=== PATIENT | female | born 1990 | race Caucasian/White ===

== ENCOUNTER 2016-06-14 19:27 | Emergency (ER) | payer OTHER ==
[~2016-06-14] VITALS: Ht 162.6 cm; Wt 84.0 kg
[~2016-06-14 19:27] MED LIST: PROM25SU8 PO
[2016-06-14 19:40] VITALS: BP 104/67; PULSE 80; RESP 17; TEMP 98.3; O2SAT 98
[2016-06-14] MEDS ORDERED: PROCHLORPERAZINE INJ 10 MG/2 ML VIAL IVP ONE (22:00)
[2016-06-14] MEDS ORDERED: diphenhydrAMINE HCL 50 MG/ML VIAL IVP ONE (22:00)
[2016-06-14] MEDS ORDERED: SODIUM CHLORIDE 0.9% FLUSH 5 ML FLUSH IVF PRN (22:00)
[2016-06-14 22:03] VITALS: BP 110/68; PULSE 78; RESP 18; TEMP 98.3; O2SAT 98
[2016-06-14] MEDS ORDERED: BUTA1CAP PO (22:05)
--- NOTE | 2016-06-14 22:05 | PD ---
HPI . Headache Chief Complaint: Headache Time Seen by Provider: 21:58 Travel History International Travel<30 days: No Contact w/Intl Traveler<30days: No Traveled to known affect area: No History of Present Illness HPI Patient presents with a three-day history of headache. It is associated with nausea and dizziness. She denies fever. She denies any upper respiratory symptoms PFSH Past Medical History Asthma: Yes Diminished Hearing: No ?: Not LMP: 1 WEEK : 2 Para: 0 Miscarriage: 1 : 1 Social History Alcohol Use: No Tobacco Use: No Substance Use: No Allergies-Medications (Allergen,Severity, Reaction): Coded Allergies: No Known Allergies (Unverified , 06/14/16) Reported Meds & Prescriptions Reported Meds & Active Scripts Active Fioricet (Uisurqvkgq-Wmhqzexjowcaj-Vcpppdtt) 50-300-40 Mg Cap 1-2 Cap PO Q6H PRN Review of Systems Except as stated in HPI: all other systems reviewed are Neg General / Constitutional: No: Fever, Chills Eyes: No: Blurred Vision HENT: Positive: Headaches Gastrointestinal: Positive: Nausea, No: Vomiting, Diarrhea Neurologic: Positive: Dizziness, No: Focal Abnormalities Physical Exam Narrative GENERAL: SKIN: Warm and dry. HEAD: Atraumatic. Normocephalic. EYES: Pupils equal and round. ENT: No nasal bleeding or discharge. Mucous membranes pink and moist. NECK: Trachea midline. CARDIOVASCULAR: Regular rate and rhythm. RESPIRATORY: No accessory muscle use. MUSCULOSKELETAL: No obvious deformities. No edema. NEUROLOGICAL: Awake and alert. No obvious cranial nerve deficits. Motor grossly within normal limits. Normal speech. PSYCHIATRIC: Appropriate mood and affect; insight and judgment normal. Data Data Last Documented VS Vital Signs Date Time Temp Pulse Resp B/P Pulse Ox O2 Delivery O2 Flow Rate FiO2 06/14/16 22:03 76 18 98 Room Air 06/14/16 22:03 98.3 110/68 Orders Iv Access Insert/Monitor (06/14/16 22:00) Sodium Chloride 0.9% Flush (Ns Flush) (06/14/16 22:00) Prochlorperazine Inj (Compazine Inj) (06/14/16 22:00) Diphenhydramine Inj (Benadryl Inj) (06/14/16 22:00) MDM Medical Decision Making Medical Screen Exam Complete: Yes Emergency Medical Condition: Yes Differential Diagnosis Differential diagnosis of headache includes but is not limited to migraine, muscle contraction headache, brain tumor, brain bleed Narrative Course Patient presents for evaluation and treatment of headache. She is well appearing. Headache is resolved. Diagnosis Primary Impression: Headache Qualified Code: G44.209 - Acute non intractable tension-type headache Med/Other Pt SpecificInfo: Prescription(s) given Scripts Bwrhkqaumk-Agtidmqivqxtk-Gedalpra (Fioricet)50-300-40 Mg Cap1-2 Cap PO Q6H PRN ( HEADACHE) #10 CAP Ref 0 Prov:Nay Song MD 06/14/16 Disposition: 01 DISCHARGE HOME Condition: Stable Nay Song MD Jun 14, 2016 22:05
[2016-06-14 23:17] VITALS: BP 108/66; PULSE 76; RESP 18; O2SAT 98
== END 2016-06-14 23:21 | disposition home or self-care (01) ==
LOC: PHED 19:27
DX: R51 Headache (principal)
CPT/HCPCS: 96374; 96375; 99283; J0780; J1200

== ENCOUNTER 2016-08-20 16:21 | Emergency (ER) | payer OTHER ==
[~2016-08-20] VITALS: Ht 162.6 cm; Wt 80.0 kg
[2016-08-20 16:21] VITALS: BP 133/75; PULSE 76; RESP 18; TEMP 98; O2SAT 99
[~2016-08-20 16:21] MED LIST changes: +BUTA1CAP PO; -PROM25SU8 PO
--- NOTE | 2016-08-20 21:16 | PD ---
HPI Chief Complaint: Fall Time Seen by Provider: 20:54 Travel History International Travel<30 days: No Contact w/Intl Traveler<30days: No Traveled to known affect area: No History of Present Illness HPI 26-year-old female arrives to the ER after she fell down her stairs at home about 7 hours prior to ER arrival. There was no loss of consciousness. She believes it was a mechanical fall. She fell down about 10 steps. She reports one episode of gagging. She denies actually vomiting. He complains of a mild frontal headache. She also complains of pain in the region of the coccyx. Pain 5/10 at rest and 7/10 with movement. The patient was ambulatory in the ER and has been since the fall. [facility] Past Medical History Medical History: Denies Significant Hx Asthma: Yes Diminished Hearing: No Immunizations Current: Yes Tetanus Vaccination: > 5 Years Influenza Vaccination: No ?: Not LMP: 07/22/2016 : 2 Para: 0 Miscarriage: 1 : 1 Past Surgical History Surgical History: No Previous Surgery Social History Alcohol Use: No Tobacco Use: No Substance Use: No Allergies-Medications (Allergen,Severity, Reaction): Coded Allergies: No Known Allergies (Unverified , 08/20/16) Reported Meds & Prescriptions Reported Meds & Active Scripts Active Ibuprofen 400 Mg Tab 400 Mg PO Q8H PRN Review of Systems Except as stated in HPI: all other systems reviewed are Neg Physical Exam Narrative GENERAL: Pleasant 26-year-old female no acute distress speaking full sentences SKIN: Warm and dry. HEAD: Atraumatic. Normocephalic. No parietal contusion or temporal contusion. EYES: Pupils equal and round. No scleral icterus. No injection or drainage. ENT: No nasal bleeding or discharge. Mucous membranes pink and moist. NECK: Trachea midline. No JVD. CARDIOVASCULAR: Regular rate and rhythm. RESPIRATORY: No accessory muscle use. Clear to auscultation. Breath sounds equal bilaterally. GASTROINTESTINAL: Abdomen soft, non-tender, nondistended. Hepatic and splenic margins not palpable. MUSCULOSKELETAL: Extremities without clubbing, cyanosis, or edema. No obvious deformities. NEUROLOGICAL: Awake and alert. No obvious cranial nerve deficits. Motor grossly within normal limits. Five out of 5 muscle strength in the arms and legs. Normal speech. PSYCHIATRIC: Appropriate mood and affect; insight and judgment normal. Data Data Last Documented VS Vital Signs Date Time Temp Pulse Resp B/P Pulse Ox O2 Delivery O2 Flow Rate FiO2 08/20/16 22:54 68 18 110/65 100 08/20/16 16:21 98.0 Room Air VS reviewed Orders Ct Brain W/O Iv Contrast(Rout) (08/20/16 21:05) Spine, Lumbar - Ltd (Ap & Lat) (08/20/16 ) Sacrum And Coccyx (08/20/16 ) Ed Urine Pregnancytest Poc (08/20/16 21:16) Acetaminophen (Tylenol) (08/20/16 21:30) MDM Medical Decision Making Medical Screen Exam Complete: Yes Emergency Medical Condition: Yes Medical Record Reviewed: Yes Differential Diagnosis ICH, coccyx fracture, contusions Narrative Course Urine negative Coccyx fracture noted. Donut pillow, pain management discussed with patient. Pt has been comfortable throughout ER stay. Pt reassured. Return precautions discussed. Last [address] 08/20/16 2105 Signed Impressions: Service Date/Time: Saturday, August 20, 2016 21:13 - CONCLUSION: No acute disease. Alexis Ball MD Sacrum and Coccyx X-Ray 08/20/16 0000 Signed Impressions: Service Date/Time: Saturday, August 20, 2016 21:35 - CONCLUSION: 1. Subtle cortical irregularity involving the coccyx suggestive of subtle acute fracture. Clinical correlation is recommended. Alexis Ball MD Lumbar Spine X-Ray 08/20/16 0000 Signed Impressions: Service Date/Time: Saturday, August 20, 2016 21:38 - CONCLUSION: No acute disease. Alexis Ball MD Diagnosis Primary Impression: Fall Qualified Code: W19.XXXA - Fall, initial encounter Additional Impressions: Head injury without concussion or intracranial hemorrhage Qualified Code: S09.90XA - Head injury without concussion or intracranial hemorrhage, initial encounter Fractured coccyx Qualified Code: S32.2XXA - Closed fracture of coccyx, initial encounter Referrals: Primary Care Physician 2 days Additional Instructions: You have a choice when it comes to health care, and we are glad that you chose [facility]. Hopefully, we have met your expectations on today's visit. You are welcome to return to [facility] at any time, as we are committed to meeting the health care needs of our community. Med/Other Pt SpecificInfo: Prescription(s) given Scripts Ibuprofen 400 Mg [id number] Mg PO Q8H PRN (PAIN SCALE 6 TO 10) #20 TAB Ref 0 Prov:Leonard Villaseñor MD 08/20/16 Disposition: 01 DISCHARGE HOME Condition: Stable Leonard Villaseñor MD Aug 20, 2016 21:16
--- NOTE | 2016-08-20 21:27 | RADRPT ---
EXAM DATE/TIME: 08/20/2016 21:13 [facility] COMPARISON: No previous studies available for comparison. INDICATIONS : Fall with head trauma. RADIATION DOSE: 56.35 CTDIvol (mGy) MEDICAL HISTORY : None SURGICAL HISTORY : None. ENCOUNTER: Initial ACUITY: 1 day PAIN SCALE: 5/10 LOCATION: cranial TECHNIQUE: Multiple contiguous axial images were obtained of the head. Using automated exposure control and adj ustment of the mA and/or kV according to patient size, radiation dose was kept as low as reasonably a chievable to obtain optimal diagnostic quality images. FINDINGS: CEREBRUM: The ventricles are normal for age. No evidence of midline shift, mass lesion, hemorrhage or acute in farction. No extra-axial fluid collections are seen. POSTERIOR FOSSA: The cerebellum and brainstem are intact. The 4th ventricle is midline. The cerebellopontine angle i s unremarkable. EXTRACRANIAL: The visualized portion of the orbits is intact. SKULL: The calvaria is intact. No evidence of skull fracture. CONCLUSION: No acute disease. Alexis Ball MD on August 20, 2016 at 21:25 Board Certified Radiologist. This report was verified electronically.
[2016-08-20] MEDS ORDERED: ACETAMINOPHEN 325 MG TAB PO ONE (21:30)
[2016-08-20] MEDS ORDERED: IBUP400T20 PO (22:05)
--- NOTE | 2016-08-20 22:06 | RADRPT ---
EXAM DATE/TIME: 08/20/2016 21:38 [facility] COMPARISON: No previous studies available for comparison. INDICATIONS : Lower back pain after fall on stairs. MEDICAL HISTORY : None. SURGICAL HISTORY : None. ENCOUNTER: Initial ACUITY: 1 day PAIN SCORE: 5/10 LOCATION: Bilateral lower back. FINDINGS: Two view examination was performed. There are five non-rib bearing vertebral bodies. The vertebral bodies are in normal alignment without evidence of subluxation or scoliosis. The disc spaces are den ntained. The pedicles are intact. Bony mineralization is normal. No fracture is identified. CONCLUSION: No acute disease. Alexis Ball MD on August 20, 2016 at 22:04 Board Certified Radiologist. This report was verified electronically.
--- NOTE | 2016-08-20 22:17 | RADRPT ---
EXAM DATE/TIME: 08/20/2016 21:35 [facility] COMPARISON: No previous studies available for comparison. INDICATIONS : Coccyx pain after fall on stairs. MEDICAL HISTORY : None. SURGICAL HISTORY : None. ENCOUNTER: Initial ACUITY: 1 day PAIN SCORE: 5/10 LOCATION: Coccyx. FINDINGS: There is slight cortical irregularity involving the coccyx raising the possibility of subtle acute fr acture. Clinical correlation is recommended. The sacrum is intact. CONCLUSION: 1. Subtle cortical irregularity involving the coccyx suggestive of subtle acute fracture. Clinical correlation is recommended. Alexis Ball MD on August 20, 2016 at 22:03 Board Certified Radiologist. This report was verified electronically.
[2016-08-20 22:54] VITALS: BP 110/65
== END 2016-08-20 22:58 | disposition home or self-care (01) ==
LOC: NEPC 16:21
DX: S09.90XA Unspecified injury of head, initial encounter (principal); S32.2XXA Fracture of coccyx, initial encounter for closed fracture; Z87.09 Personal history of other diseases of the respiratory system; W10.8XXA Fall (on) (from) other stairs and steps, initial encounter
CPT/HCPCS: 70450; 72100; 72220; 84703

== ENCOUNTER 2017-08-10 19:27 | Emergency (ER) | payer OTHER ==
[~2017-08-10 19:27] MED LIST changes: -BUTA1CAP PO; +IBUP1TAB5 PO
[2017-08-10 19:44] VITALS: BP 153/63; PULSE 115; RESP 18; TEMP 98.4; O2SAT 98
[2017-08-10 22:54] VITALS: BP 122/60; PULSE 110; RESP 16; O2SAT 97
[2017-08-10] MEDS ORDERED: BIRTH CONTROL PO (22:56)
[2017-08-10] MEDS ORDERED: SODIUM CHLOR 0.9% 1000 ML INJ 1,000 ML IV ONE ×2 (23:15→23:30)
[2017-08-10 23:21] LABS: AUTOMATED NEUTROPHIL # 10.1 TH/MM3 (1.8-7.7); BASOPHIL % 0.2 % (0.0-2.0); EOSINOPHIL # 0.1 TH/MM3 (0-0.4); EOSINOPHIL % 0.5 % (0.0-4.0); HEMATOCRIT 38.9 % (35.0-46.0); HEMOGLOBIN 13.5 GM/DL (11.6-15.3); LYMPH % 4.7 % (9.0-44.0); LYMPHOCYTE # 0.5 TH/MM3 (1.0-4.8); MEAN CELL VOLUME 83.4 FL (80.0-100.0); MEAN CORPUSCULAR HEMOGLOBIN 28.9 PG (27.0-34.0); MEAN CORPUSCULAR HGB CONC 34.7 % (32.0-36.0); MEAN PLATELET VOLUME 8.3 FL (7.0-11.0); MONOCYTE # 0.6 TH/MM3 (0-0.9); NEUT % 89.6 % (16.0-70.0); PLATELET COUNT 204 TH/MM3 (150-450); RED BLOOD COUNT 4.67 MIL/MM3 (4.00-5.30); RED CELL DISTRIBUTION WIDTH 12.2 % (11.6-17.2); WHITE BLOOD COUNT 11.3 TH/MM3 (4.0-11.0)
[2017-08-10] MEDS ORDERED: ONDANSETRON HCL 4 MG/2 ML VIAL IV ONE (23:30)
[2017-08-10 23:31] LABS: INTERNATIONAL NORMALIZED RATIO 1.1 RATIO; PROTHROMBIN TIME - PATIENT 10.8 SEC (9.8-11.6)
[2017-08-10 23:38] LABS: AST (GOT) 13 U/L (15-37); BICARBONATE 23.8 MEQ/L (21.0-32.0); BLOOD UREA NITROGEN 14 MG/DL (7-18); CALCIUM 8.5 MG/DL (8.5-10.1); CHLORIDE 104 MEQ/L (98-107); CREATININE 0.72 MG/DL (0.50-1.00); GLOMERULAR FILTRATION RATE 96 ML/MIN (>89); GLUCOSE,RANDOM 112 MG/DL (74-106); SODIUM (NA) 138 MEQ/L (136-145)
[2017-08-10 23:39] LABS: ALT (GPT) 20 U/L (10-53)
[2017-08-10 23:41] LABS: ALKALINE PHOSPHATASE 67 U/L (45-117); TOTAL BILIRUBIN ADULT 0.4 MG/DL (0.2-1.0); TOTAL PROTEIN 7.6 GM/DL (6.4-8.2)
[2017-08-10] MEDS ORDERED: ZOFR4TAB3 SL (23:42)
--- NOTE | 2017-08-10 23:50 | PD ---
HPI Chief Complaint: GI Complaint Time Seen by Provider: 22:50 Travel History International Travel<30 days: No Contact w/Intl Traveler<30days: No Traveled to known affect area: No History of Present Illness HPI Is a 27-year-old woman who presents to the emergency department complaining of nausea and vomiting that started this afternoon. She is nauseous all day. Vomiting started she was driving home from work this afternoon. She had been feeling generally well and healthy. She has had some chills but no definite fevers. No real abdominal pain. No diarrhea. Last bowel movement was normal. No history of abdominal surgeries. No urinary symptoms. No definite sick contacts. No recent travel, antibiotic exposure, or undercooked or unusual foods. History Past Medical History Medical History: Denies Significant Hx Tetanus Vaccination: Unknown Influenza Vaccination: No LMP: UNKNOWN : 2 Para: 0 Past Surgical History Surgical History: No Previous Surgery Social History Alcohol Use: No Tobacco Use: No Allergies-Medications (Allergen,Severity, Reaction): Coded Allergies: No Known Allergies (Unverified , 08/20/16) Reported Meds & Prescriptions Reported Meds & Active Scripts Active Zofran Odt (Ondansetron Odt) 4 Mg Tab 4 Mg SL Q8HR PRN Reported [ Control] 1 Tab PO DAILY Review of Systems Except as stated in HPI: all other systems reviewed are Neg Physical Exam Narrative GENERAL: Well-appearing 27-year-old woman, no acute distress. SKIN: Focused skin assessment warm/dry. HEAD: Atraumatic. Normocephalic. EYES: Pupils equal and round. No scleral icterus. No injection or drainage. ENT: No nasal bleeding or discharge. Mucous membranes pink and moist. NECK: Trachea midline. No JVD. CARDIOVASCULAR: Regular rate and rhythm. No murmur appreciated. RESPIRATORY: No accessory muscle use. Clear to auscultation. Breath sounds equal bilaterally. GASTROINTESTINAL: Abdomen soft, non-tender, nondistended. Hepatic and splenic margins not palpable. MUSCULOSKELETAL: No obvious deformities. No clubbing. No cyanosis. No edema. NEUROLOGICAL: Awake and alert. No obvious cranial nerve deficits. Motor grossly within normal limits. Normal speech. PSYCHIATRIC: Appropriate mood and affect; insight and judgment normal. Data Data Last Documented VS Vital Signs Date Time Temp Pulse Resp B/P (MAP) Pulse Ox O2 Delivery O2 Flow Rate FiO2 08/10/17 22:54 110 16 122/60 (80) 97 Room Air 08/10/17 19:44 98.4 Orders Orders Complete Blood Count With Diff (08/10/17 19:46) Comprehensive Metabolic Panel (08/10/17 19:46) Lipase (08/10/17 19:46) Prothrombin Time / Inr (Pt) (08/10/17:46) Act Partial Throm Time (Ptt) (08/10/17 19:46) Urinalysis - C+S If Indicated (08/10/17:46) Type And Screen (08/10/17:46) Sodium Chlor 0.9% 1000 Ml Inj (Ns 1000 M (08/10/17 23:15) Ondansetron Inj (Zofran Inj) (08/10/17 23:30) Sodium Chlor 0.9% 1000 Ml Inj (Ns 1000 M (08/10/17 23:30) Labs Laboratory Tests Test 08/10/17 23:00 08/10/17 23:40 White Blood Count 11.3 TH/MM3 Red Blood Count 4.67 MIL/MM3 Hemoglobin 13.5 GM/DL Hematocrit 38.9 % Mean Corpuscular Volume 83.4 FL Mean Corpuscular Hemoglobin 28.9 PG Mean Corpuscular Hemoglobin Concent 34.7 % Red Cell Distribution Width 12.2 % Platelet Count 204 TH/MM3 Mean Platelet Volume 8.3 FL Neutrophils (%) (Auto) 89.6 % Lymphocytes (%) (Auto) 4.7 % Monocytes (%) (Auto) 5.0 % Eosinophils (%) (Auto) 0.5 % Basophils (%) (Auto) 0.2 % Neutrophils # (Auto) 10.1 TH/MM3 Lymphocytes # (Auto) 0.5 TH/MM3 Monocytes # (Auto) 0.6 TH/MM3 Eosinophils # (Auto) 0.1 TH/MM3 Basophils # (Auto) 0.0 TH/MM3 CBC Comment DIFF FINAL Differential Comment Prothrombin Time 10.8 SEC Prothromb Time International Ratio 1.1 RATIO Activated Partial Thromboplast Time 25.9 SEC Blood Urea Nitrogen 14 MG/DL Creatinine 0.72 MG/DL Random Glucose 112 MG/DL Total Protein 7.6 GM/DL Albumin 4.0 GM/DL Calcium Level 8.5 MG/DL Alkaline Phosphatase 67 U/L Aspartate Amino Transf (AST/SGOT) 13 U/L Alanine Aminotransferase (ALT/SGPT) 20 U/L Total Bilirubin 0.4 MG/DL Sodium Level 138 MEQ/L Potassium Level 3.6 MEQ/L Chloride Level 104 MEQ/L Carbon Dioxide Level 23.8 MEQ/L Anion Gap 10 MEQ/L Estimat Glomerular Filtration Rate 96 ML/MIN Lipase 120 U/L Urine Color YELLOW Urine Turbidity CLEAR Urine pH 6.0 Urine Specific [place] 1.031 Urine Protein TRACE mg/dL Urine Glucose (UA) NEG mg/dL Urine Ketones 40 mg/dL Urine Occult Blood NEG Urine Nitrite NEG Urine Bilirubin NEG Urine Urobilinogen LESS THAN 2.0 MG/DL Urine Leukocyte Esterase NEG Urine RBC 2 /hpf Urine WBC 1 /hpf Urine Squamous Epithelial Cells 1 /hpf Urine Mucus FEW /lpf Microscopic Urinalysis Comment CULT NOT INDICATED MDM Medical Decision Making Medical Screen Exam Complete: Yes Emergency Medical Condition: Yes Interpretation(s) LABS: CBC is unremarkable. CMP is unremarkable. Lipase is normal. UA is unremarkable Differential Diagnosis Nausea vomiting, gastroenteritis, gastritis, UTI, appendicitis, foodborne illness, other Narrative Course Medical decision making INITIAL is a 19-year-old woman presents emerged from with isolated vomiting. No real other symptoms. No diarrhea. She looks well. She is benign abdominal exam. Check labs, fluids, supportive treatment. Diagnosis Primary Impression: Nausea & vomiting Additional Instructions: Use Zofran as needed for nausea or vomiting. Drink plenty fluids stay well-hydrated. Return to the emergency department for any worsening abdominal pain, bloody diarrhea, high fevers, or any other new or worsening symptoms. Med/Other Pt SpecificInfo: Prescription(s) given Scripts Ondansetron Odt (Zofran Odt) 4 Mg Tab 4 MG SL Q8HR Y for Nausea/Vomiting, #15 TAB 0 Refills Prov: Kenny Gibson MD 08/10/17 Disposition: 01 DISCHARGE HOME Condition: Stable Kenny Gibson MD Aug 10, 2017 23:50
[2017-08-10 23:56] LABS: BILIRUBIN, URINE NEG (NEG); BLOOD, URINE NEG (NEG); GLUCOSE,URINE NEG (NEG); KETONE, URINE 40 mg/dL (NEG); MUCUS URINE FEW /lpf (OCC); NITRITE,URINE NEG (NEG); SQUAMOUS EPITHELIAL CELL URINE 1 /hpf (0-5); URINE COLOR YELLOW (YELLW/STRAW); URINE LEUKOCYTE ESTERASE NEG (NEG)
[2017-08-11 00:17] VITALS: BP 119/56
== END 2017-08-11 00:19 | disposition home or self-care (01) ==
LOC: NED 19:27 → NEPD 08-11 00:19
DX: R11.2 Nausea with vomiting, unspecified (principal); Z79.3 Long term (current) use of hormonal contraceptives
CPT/HCPCS: 80053; 81001; 83690; 85025; 85610; 85730; 86850; 86900; 86901; 96374; 99284; J2405; J7030

== ENCOUNTER 2017-10-18 08:07 | Emergency (ER) | payer OTHER ==
[~2017-10-18] VITALS: Ht 162.6 cm; Wt 88.0 kg
[~2017-10-18 08:07] MED LIST changes: +BIRTH CONTROL PO; -IBUP1TAB5 PO; +ZOFR4TAB3 SL
[2017-10-18 08:09] VITALS: BP 128/59; PULSE 92; RESP 20; TEMP 98.2; O2SAT 96
[2017-10-18 09:43] LABS: AUTOMATED NEUTROPHIL # 4.5 TH/MM3 (1.8-7.7); BASOPHIL % 0.6 % (0.0-2.0); EOSINOPHIL # 0.1 TH/MM3 (0-0.4); EOSINOPHIL % 2.1 % (0.0-4.0); HEMATOCRIT 38.3 % (35.0-46.0); LYMPHOCYTE # 1.5 TH/MM3 (1.0-4.8); MEAN CELL VOLUME 83.8 FL (80.0-100.0); MEAN CORPUSCULAR HEMOGLOBIN 28.5 PG (27.0-34.0); MONO % 7.2 % (0.0-8.0); MONOCYTE # 0.5 TH/MM3 (0-0.9); NEUT % 67.1 % (16.0-70.0); PLATELET COUNT 206 TH/MM3 (150-450); RED BLOOD COUNT 4.56 MIL/MM3 (4.00-5.30); RED CELL DISTRIBUTION WIDTH 12.3 % (11.6-17.2); WHITE BLOOD COUNT 6.7 TH/MM3 (4.0-11.0)
[2017-10-18 10:00] LABS: ALBUMIN 3.7 GM/DL (3.4-5.0); AST (GOT) 13 U/L (15-37); BICARBONATE 25.1 MEQ/L (21.0-32.0); BLOOD UREA NITROGEN 11 MG/DL (7-18); CALCIUM 8.3 MG/DL (8.5-10.1); CHLORIDE 108 MEQ/L (98-107); CREATININE 0.78 MG/DL (0.50-1.00); GLOMERULAR FILTRATION RATE 88 ML/MIN (>89); GLUCOSE,RANDOM 94 MG/DL (74-106); SODIUM (NA) 141 MEQ/L (136-145)
[2017-10-18 10:01] LABS: ALT (GPT) 31 U/L (10-53)
[2017-10-18 10:04] LABS: BILIRUBIN, URINE NEG (NEG); BLOOD, URINE LARGE (NEG); GLUCOSE,URINE NEG (NEG); KETONE, URINE NEG (NEG); MUCUS URINE FEW /lpf (OCC); NITRITE,URINE NEG (NEG); RENAL EPITHELIAL CELLS <1 /hpf; SQUAMOUS EPITHELIAL CELL URINE 1 /hpf (0-5); URINE COLOR YELLOW (YELLW/STRAW); URINE LEUKOCYTE ESTERASE NEG (NEG)
[2017-10-18 10:05] LABS: ALKALINE PHOSPHATASE 65 U/L (45-117); TOTAL BILIRUBIN ADULT 0.3 MG/DL (0.2-1.0); TOTAL PROTEIN 7.1 GM/DL (6.4-8.2)
--- NOTE | 2017-10-18 10:55 | PD ---
HPI Chief Complaint: Related Problem Time Seen by Provider: 08:28 Travel History International Travel<30 days: No Contact w/Intl Traveler<30days: No Traveled to known affect area: No History of Present Illness HPI Patient is a 27 year old female who comes in complaining of abdominal cramping and bleeding that started early this morning. She says the cramping woke her up from sleep. She reports being 6 weeks . She has been 3 times, with one and one miscarriage. She denies dizziness, chest pain , SOB. She says the cramping has improved. She also reports the bleeding has slowed down. Severity is mild. PFSH Past Medical History Medical History: Denies Significant Hx Asthma: Yes Diminished Hearing: No Immunizations Current: Yes ?: LMP: 06/2017 : 2 Para: 0 Miscarriage: 1 : 1 Past Surgical History Surgical History: No Previous Surgery Social History Alcohol Use: No Tobacco Use: No Substance Use: No Allergies-Medications (Allergen,Severity, Reaction): Coded Allergies: No Known Allergies (Unverified , 08/20/16) Reported Meds & Prescriptions Reported Meds & Active Scripts Active Zofran Odt (Ondansetron Odt) 4 Mg Tab 4 Mg SL Q8HR PRN Reported [ Control] 1 Tab PO DAILY Review of Systems Except as stated in HPI: all other systems reviewed are Neg General / Constitutional: No: Fever, Chills HENT: No: Headaches, Lightheadedness Cardiovascular: No: Chest Pain or Discomfort Respiratory: No: Shortness of Breath Gastrointestinal: No: Nausea, Vomiting, Abdominal Pain Genitourinary: Positive: Vaginal Bleeding, No: Dysuria Skin: No Rash, No Itching Neurologic: No: Weakness, Dizziness Physical Exam Narrative GENERAL: Awake and alert, in no acute distress. SKIN: Focused skin assessment warm/dry. HEAD: Atraumatic. Normocephalic. EYES: Pupils equal and round. No scleral icterus. ENT: Mucous membranes pink and moist. NECK: Trachea midline. No JVD. CARDIOVASCULAR: Regular rate and rhythm. No murmur appreciated. RESPIRATORY: No accessory muscle use. Clear to auscultation. Breath sounds equal bilaterally. GASTROINTESTINAL: Abdomen soft, non-tender, nondistended. : Exam performed in the presence of a nurse. Os appear closed, blood oozing from the os. No CMT. MUSCULOSKELETAL: No obvious deformities. No clubbing. No cyanosis. No edema. NEUROLOGICAL: Awake and alert. No obvious cranial nerve deficits. Motor grossly within normal limits. Normal speech. PSYCHIATRIC: Appropriate mood and affect; insight and judgment normal. Data Data Last Documented VS Vital Signs Date Time Temp Pulse Resp B/P (MAP) Pulse Ox O2 Delivery O2 Flow Rate FiO2 10/18/17 08:09 98.2 92 20 128/59 (82) 96 Orders Orders Iv Access Insert/Monitor (10/18/17 08:47) Complete Blood Count With Diff (10/18/17 08:47) Comprehensive Metabolic Panel (10/18/17 08:47) Urinalysis - C+S If Indicated (10/18/17 08:47) Beta Hcg (Quant/Titer) (10/18/17 08:47) Us Pelvis (Ques Pr/Ect)W Trans (10/18/17 ) Labs Laboratory Tests Test 10/18/17 09:25 10/18/17 09:30 White Blood Count 6.7 TH/MM3 Red Blood Count 4.56 MIL/MM3 Hemoglobin 13.0 GM/DL Hematocrit 38.3 % Mean Corpuscular Volume 83.8 FL Mean Corpuscular Hemoglobin 28.5 PG Mean Corpuscular Hemoglobin Concent 34.0 % Red Cell Distribution Width 12.3 % Platelet Count 206 TH/MM3 Mean Platelet Volume 8.0 FL Neutrophils (%) (Auto) 67.1 % Lymphocytes (%) (Auto) 23.0 % Monocytes (%) (Auto) 7.2 % Eosinophils (%) (Auto) 2.1 % Basophils (%) (Auto) 0.6 % Neutrophils # (Auto) 4.5 TH/MM3 Lymphocytes # (Auto) 1.5 TH/MM3 Monocytes # (Auto) 0.5 TH/MM3 Eosinophils # (Auto) 0.1 TH/MM3 Basophils # (Auto) 0.0 TH/MM3 CBC Comment DIFF FINAL Differential Comment Blood Urea Nitrogen 11 MG/DL Creatinine 0.78 MG/DL Random Glucose 94 MG/DL Total Protein 7.1 GM/DL Albumin 3.7 GM/DL Calcium Level 8.3 MG/DL Alkaline Phosphatase 65 U/L Aspartate Amino Transf (AST/SGOT) 13 U/L Alanine Aminotransferase (ALT/SGPT) 31 U/L Total Bilirubin 0.3 MG/DL Sodium Level 141 MEQ/L Potassium Level 3.7 MEQ/L Chloride Level 108 MEQ/L Carbon Dioxide Level 25.1 MEQ/L Anion Gap 8 MEQ/L Estimat Glomerular Filtration Rate 88 ML/MIN Human Chorionic Gonadotropin, Quant 79 MIU/ML Urine Color YELLOW Urine Turbidity CLEAR Urine pH 6.0 Urine Specific [place] 1.013 Urine Protein NEG mg/dL Urine Glucose (UA) NEG mg/dL Urine Ketones NEG mg/dL Urine Occult Blood LARGE Urine Nitrite NEG Urine Bilirubin NEG Urine Urobilinogen LESS THAN 2.0 MG/DL Urine Leukocyte Esterase NEG Urine RBC 60 /hpf Urine WBC 3 /hpf Urine Squamous Epithelial Cells 1 /hpf Urine Renal Epithelial Cells <1 /hpf Urine Mucus FEW /lpf Microscopic Urinalysis Comment CULT NOT INDICATED MDM Medical Decision Making Medical Screen Exam Complete: Yes Emergency Medical Condition: Yes Medical Record Reviewed: Yes Differential Diagnosis threatened vs competed vs incomplete Narrative Course Patient is a 27 year old female who comes in complaining of bleeding in . Exam shows no abdominal tenderness. IV established, lab sent. Type and screen from prior visit shows patient is Rh positive. Ultrasound shows possible early gestational sac/ovarian cyst. Last 24 hours Impressions Pelvis Ultrasound 10/18/17 0000 Signed Impressions: CONCLUSION: 1. There is a tiny 2 to 3 mm cystic area adjacent to the endometrium in the ut erus. This is nonspecific. This could potentially represent an early gestationa l sac. 2. There is a complex thick-walled septated cyst associated with the left ovar y measuring 1.6 x 1.5 cm. What appears to be a thickened septa could also poten tially be a pole however I suspect this is most likely a thickened septa. There is no free fluid in the left adnexa or cul-de-sac. This needs to be maria del rosario elated with patient's physical, clinical exam and laboratory values. 3. Recommend serial beta-hCGs and follow-up ultrasound, if clinically indicate d. Patient advised of these results. She is advised to return in 2 days for repeat testing. Given strict return precautions. Patient's beta hCG is 79 today. She reports it was 600 last week, making miscarriage the likely diagnosis. She is comfortable discharge at this time. Diagnosis Primary Impression: Threatened miscarriage Patient Instructions: General Instructions, Miscarriage (ED) Additional Instructions: Your beta hCG was 79 today. You are likely having a miscarriage. However, your ultrasound was inconclusive today. Please return in 2 days for repeat testing. Return anytime for any worsening symptoms. Disposition: 01 DISCHARGE HOME Condition: Barb Wilson MD October 18, 2017 10:55
--- NOTE | 2017-10-18 12:16 | RADRPT ---
EXAM DATE: 10/18/2017 11:55 AM EDT AGE/SEX: 27 years / Female INDICATIONS: Vaginal bleeding. CLINICAL DATA: This is the patient's initial encounter. Patient reports that signs and symptoms have been present for 1 week and indicates a pain score of 0/10. MEDICAL/SURGICAL HISTORY: Asthma. None. COMPARISON: No prior [facility] exams available for comparison. No external comparison. MEASUREMENTS: Uterus:__7.3 x 3.6 x 4.7 Endometrial Stripe:__5 mm Right Ovary:__ 2.5 x 1.5 x 2.1 Left Ovary:__ 3.0 x 1.6 x 2.6 FINDINGS: Uterus: The uterus appears to be within normal limits for size shape and echogenicity. There is a ti ny 2 to 3 mm cystic area adjacent to the endometrium.A few tiny nabothian cysts are seen on the cervi x. Otherwise the uterus is unremarkable. Right Ovary: The right ovary is a few follicular cysts. Otherwise the right ovary is unremarkable. Left Ovary: There is a complex thick walled cyst involving the left ovary measuring 1.6 x 1.5 cm. Th ere appears to be a thickened septa. Second less likely possibility would be a pole. Other: No free fluid. CONCLUSION: 1. There is a tiny 2 to 3 mm cystic area adjacent to the endometrium in the uterus. This is nonspeci fic. This could potentially represent an early gestational sac. 2. There is a complex thick-walled septated cyst associated with the left ovary measuring 1.6 x 1.5 cm. What appears to be a thickened septa could also potentially be a pole however I suspect thi s is most likely a thickened septa. There is no free fluid in the left adnexa or cul-de-sac. This nee ds to be correlated with patient's physical, clinical exam and laboratory values. 3. Recommend serial beta-hCGs and follow-up ultrasound, if clinically indicated. Electronically signed by: Bhavin Bender MD 10/18/2017 12:14 PM EDT
[2017-10-18 12:56] VITALS: BP 122/60
== END 2017-10-18 12:56 | disposition home or self-care (01) ==
LOC: NEPC 08:07
DX: O20.0 Threatened abortion (principal); Z3A.01 Less than 8 weeks gestation of pregnancy
CPT/HCPCS: 76700; 76817; 80053; 81001; 84702; 85025

== ENCOUNTER 2017-10-20 07:44 | Emergency (ER) | payer OTHER ==
[~2017-10-20] VITALS: Ht 162.6 cm; Wt 85.0 kg
[2017-10-20 07:51] VITALS: BP 123/60; PULSE 80; RESP 16; TEMP 98.6; O2SAT 97
--- NOTE | 2017-10-20 08:09 | PD ---
HPI Chief Complaint: Health Care Consultant Problem/Complaint Time Seen by Provider: 07:59 Travel History International Travel<30 days: No Contact w/Intl Traveler<30days: No Traveled to known affect area: No History of Present Illness HPI 27 y/o female presents with resolution of her symptoms. She states she was having vaginal bleeding and abdominal pain but it stopped last night. She denies any other concurrent concerns. She states she is here for recheck. She states the quality was cramping. Severity is now resolved. She confirms prior history from recent visit. [facility] Past Medical History Asthma: Yes Diminished Hearing: No Immunizations Current: Yes ?: Unknown : 2 Para: 0 Miscarriage: 1 : 1 Social History Alcohol Use: No Tobacco Use: No Substance Use: No Allergies-Medications (Allergen,Severity, Reaction): Coded Allergies: No Known Allergies (Verified Adverse Reaction, Unknown, 10/20/17) Reported Meds & Prescriptions Reported Meds & Active Scripts Active Zofran Odt (Ondansetron Odt) 4 Mg Tab 4 Mg SL Q8HR PRN Reported [ Control] 1 Tab PO DAILY Review of Systems Except as stated in HPI: all other systems reviewed are Neg Physical Exam Narrative GENERAL: 27-year-old female in no apparent distress SKIN: Focused skin assessment warm/dry. HEAD: Atraumatic. Normocephalic. EYES: Pupils equal and round. No scleral icterus. No injection or drainage. ENT: No nasal bleeding or discharge. Mucous membranes pink and moist. NECK: Trachea midline. No JVD. CARDIOVASCULAR: Regular rate and rhythm. RESPIRATORY: No accessory muscle use. No increased effort GASTROINTESTINAL: Abdomen soft, non-tender, nondistended. MUSCULOSKELETAL: No obvious deformities. No clubbing. No cyanosis. No edema. NEUROLOGICAL: Awake and alert. No obvious cranial nerve deficits. Motor grossly within normal limits. Normal speech. PSYCHIATRIC: Appropriate mood and affect; insight and judgment normal. Data Data Last Documented VS Vital Signs Date Time Temp Pulse Resp B/P (MAP) Pulse Ox O2 Delivery O2 Flow Rate FiO2 10/20/17 07:51 98.6 80 16 123/60 (81) 97 Orders Orders Beta Hcg (Quant/Titer) (10/20/17 08:01) Ed Discharge Order (10/20/17 08:42) Labs Laboratory Tests Test 10/20/17 08:08 Human Chorionic Gonadotropin, Quant 49 MIU/ML [facility] Medical Decision Making Medical Screen Exam Complete: Yes Emergency Medical Condition: Yes Medical Record Reviewed: Yes (Past history confirmed) Interpretation(s) beta is 49 Differential Diagnosis Miscarriage, ectopic, Narrative Course We will repeat beta quant level. Given symptoms have resolved if going down patient is okay with this completing workup with likely miscarriage diagnosis. If level is starting to go up she will need repeat ultrasound Patient has no active symptoms. Pain is gone from 79 to 49 no additional testing here and close outpatient follow-up which she is in agreement to. Given return instructions Diagnosis Primary Impression: Miscarriage Patient Instructions: General Instructions Additional Instructions: Return as needed, follow with OB gynecology this week Med/Other Pt SpecificInfo: No Change to Meds Disposition: 01 DISCHARGE HOME Condition: Stable Ema Blanco MD October 20, 2017 08:09
== END 2017-10-20 08:51 | disposition home or self-care (01) ==
LOC: NEPE 07:44
DX: O03.9 Complete or unspecified spontaneous abortion without complication (principal)
CPT/HCPCS: 84702; 99281